=== PATIENT | female | born 1975 | race Caucasian/White ===

== ENCOUNTER 2019-08-18 08:20 | Outpatient (CLI) | payer BC ==
[~2019-08-18] VITALS: Ht 177.8 cm; Wt 77.6 kg
[~2019-08-18 08:20] MED LIST: ANTIVERT 25MG25 MG PO; EFFEXOR 3737.5 MG/TA PO; HCTZ 25MG TAB25 MG PO; IMITREX 25MG TA25 MG PO; K-DUR20 MEQ PO; MOTRIN 800800 MG/TAB PO; MULTI VITAMINS1 TAB PO; PHARMASSURE MA500 MG PO; PRIL40 PO; TURMERIC500 MG PO; VALIUM 2MG T2 MG/TAB PO; ZOFRAN 4MG T4 MG/TAB PO
[2019-08-18 08:38] VITALS: BP 125/75; PULSE 79
[2019-08-18] MEDS ORDERED: TYLENOL 500MG500 MG PO (08:38)
[2019-08-18 09:15] VITALS: BP 116/71; PULSE 77
--- NOTE | 2019-08-18 09:26 | NUR ---
Pt arrived to room 10,Report from Kimberly Heaton.
[2019-08-18 09:30] VITALS: BP 111/94; PULSE 77
[2019-08-18 09:45] VITALS: BP 108/71; PULSE 71
[2019-08-18 10:00] VITALS: BP 116/76; PULSE 72
[2019-08-18 10:00] LABS: GLUCOSE,CSF 54 mg/dL (40-70); TOTAL PROTEIN,CSF 27 mg/dL (15-45)
[2019-08-18 10:15] VITALS: BP 111/71; PULSE 72
[2019-08-18 10:36] LABS: CSF APPEARANCE CLEAR; CSF COLOR COLORLESS; CSF MONONUCLEAR 100 % (70-100); CSF POLYMORPHONUCLEAR 0 % (0-6); CSF RBC 0 /mm3 (0-0)
--- NOTE | 2019-08-18 10:36 | NUR ---
Discharge instructions given to pt.pt verbalizes understanding.Pt escorted out by this nurse.
[2019-08-22 12:33] LABS: ALBUMIN CSF 20.4 mg/dL (<=27.0)
[2019-08-22 12:37] LABS: CSF IGG/ALBUMIN 0.11 (<=0.21); CSF,IGG 2.3 mg/dL (<=8.1); CSF-IGG INDEX 0.48 (<=0.85); IGG/ALBUMIN SERUM 0.23 (<=0.40)
== END 2019-08-18 11:16 | disposition home or self-care (01) ==
LOC: COL.RAD 08:20
PROVIDERS: Psychiatry & Neurology Neurology
DX: G37.9 Demyelinating disease of central nervous system, unspecified (principal)